=== PATIENT | male | born 1960 | race Caucasian/White ===

== ENCOUNTER 2021-06-06 18:26 | Inpatient (IN) | payer OTHER, SELFPAY ==
[2021-06-06] VITALS (12 sets, daily range): BP systolic 136–185; BP diastolic 63–99; PULSE 80–103; RESP 11–30; TEMP 37–37.8; O2SAT 92–96; BMI 37.3
--- NOTE | 2021-06-06 | PATH_ITS ---
[facility] Accession Number: [id number] . 01 Material submitted: . appendix - APPENDIX . 02 Diagnosis: Appendix, Appendectomy: Acute appendicitis and serositis. [facility] 06/09/2021 1021 Local . 02 Electronically signed: . Nayely Fernandez MD, Pathologist NPI- [id number] . 01 Gross description: . The specimen is received in formalin, labeled appendix and consists of a 7.8 cm in length by 1.0 cm in diameter vermiform appendix with attached veloz-yellow, focally hemorrhagic mesoappendix measuring 7.0 x 3.0 x 2.0 cm. The serosa is veloz-brown and ragged with focal areas of disruption and purulent exudate. Sectioning reveals a veloz-pink to veloz-brown hemorrhagic mucosa and a lumen measuring 0.6 cm in diameter. Laboratory Phlebotomist sections are submitted, to include the en face margin (blue), central cross sections and bisected tip, in cassette A1-A2. ([id number]) /[facility] 06/08/2021 1054 Local . 02 Pathologist provided ICD-10: K35.20 . 02 CPT . 389604 Performed at: 01 [facility] Cytology [address], [place], [place] [id number] MD Nicola Colunga MD Phone: [phone] Performed at: 02 [facility] [address] [place], [place] [id number] MD Joselyn Moreno MD Phone: [phone]
--- NOTE | 2021-06-06 19:06 | ED_ITS ---
HPI - Abdominal Pain General Chief Complaint: Abdominal Pain Stated Complaint: pain in low abd Time Seen by Provider: 06/06/21 18:59 Source: patient Mode of arrival: Ambulatory Limitations: no limitations History of Present Illness HPI narrative: This is a 60-year-old male comes in with some abdominal pain that started last night he describes it as lower but has no localized to the right lower quadrant. He states he began to feel fevers afternoon and has developed diaphoresis. He denies any lightheadedness. No chest pain or shortness of breath. No active nausea or vomiting. He has had bowel movement. He has had normal urination. He denies any back or flank pain. Denies any radiation of pain to his back. He is on 2 medications for blood pressure. He is allergic to aspirin and has anaphylactic symptoms., NSAIDs, clams and bee venom. Patient denies any major surgeries. He has never had any cardiac stents. Related Data Home Medications Medication Instructions Recorded Confirmed colchicine 0.6 mg tablet 0.6 mg PO PRN PRN 06/07/21 06/07/21 quinapril 20 mg tablet 20 mg PO DAILY 06/07/21 06/07/21 verapamil 240 mg tablet,extended 240 mg PO DAILY 06/07/21 06/07/21 release Allergies Allergy/AdvReac Type Severity Reaction Status Date / Time bee venom protein (honey bee) Allergy Verified 06/06/21 18:45 clams Allergy Verified 06/06/21 18:45 NSAIDS (Non-Steroidal Allergy Verified 06/06/21 18:44 Anti-Inflamma Review of Systems Review of Systems ROS Unobtainable: All systems reviewed & are unremarkable except as noted in HPI and below Patient History Medical History (Updated 06/06/21 @ 22:16 by Asia Perdomo DO) Hypertension Surgical History (Updated 06/06/21 @ 21:54 by Leonidas Suarez MD) History of lumbar fusion S/P hip replacement Social History household members: spouse Smoking Status: Never smoker alcohol intake: current Smoking Status: Never smoker alcohol intake frequency: 0-2 drinks per day Substance Use Type: marijuana Exam Narrative Exam Narrative: GENERAL: Alert and oriented x three, obese male in moderate distress. Patient is diaphoretic to touch. HEENT: Head normocephalic, atraumatic, EOMI, pupils reactive, face symmetric, moist mucous membranes NECK: Supple, full range of motion CARDIOVASCULAR: Regular rate and rhythm without murmurs, rubs or gallops. RESPIRATORY: Breath sounds equal bilaterally, no wheezes rales or rhonchi. ABDOMEN: Soft, positive for right lower quadrant tenderness. Bowel sounds all 4 quadrants. No guarding or rebound, rigidity, no mass, no pulsatile mass, bruit. : No CVA tenderness EXTREMITIES: Normal range of motion, no clubbing or edema. Neurovascularly intact NEUROLOGICAL: Cranial nerves II through XII grossly intact. Moving all extremities SKIN: Warm, dry, no petechiae, no rashes or lesions. Initial Vital Signs Initial Vital Signs: Vital Signs Temperature 100.1 F H 06/06/21 18:45 Pulse Rate 103 H 06/06/21 18:45 Respiratory Rate 20 06/06/21 18:45 Blood Pressure 183/98 H 06/06/21 18:45 Pulse Oximetry 94 06/06/21 18:45 Course Orders Ordered: ED Orders 06/06/21 19:08 EKG-12 Lead Stat 06/06/21 19:25 Type and Screen Stat 06/06/21 19:52 CT abdomen pelvis w con Stat 06/06/21 20:38 COVID19 -Nasal swab/Pre-Proc Stat 06/06/21 20:45 COVID19 - ADMIT (ELECTRICAL TROUBLESHOOTER swab/PCR) Stat 06/06/21 21:30 Urinalysis and Microscopic Stat Acetaminophen (Acetaminophen 325 Mg Tablet) 650 mg PO Q6HR MARGARET Last Admin: 06/07/21 00:43 Dose: 650 mg Documented by: LEONORA Al Hydrox/Mg Hydrox/Simethicone (Mag Hydrox/Alum/Simeth 30 Ml Udc) 30 ml PO Q6HR PRN PRN Reason: Dyspepsia Calcium Carbonate (Calcium Carbonate 500 Mg Tab) 1,000 mg PO Q4HR PRN PRN Reason: Dyspepsia Enoxaparin Sodium (Enoxaparin 40 Mg/0.4 Ml Syringe) 40 mg SUBCUT DAILY [facility] Fentanyl (Fentanyl 100 Mcg/2 Ml Inj) 0 mcg IV Q5MIN PRN PRN Reason: Pain, Severe (7-10) Hydromorphone HCl (Hydromorphone 1 Mg Inj) 1 mg IV Q3H PRN PRN Reason: Pain, Severe (7-10) Piperacillin Sod/Tazobactam (Sod 3.375 gm/ Sodium Chloride) 100 mls @ 25 mls/hr IV Q8H [facility] Last Admin: 06/07/21 00:45 Dose: 25 mls/hr Documented by: LEONORA Lactated Ringer's (Lactated Ringers) 1,000 mls @ 120 mls/hr IV CONT [facility] Last Admin: 06/07/21 00:35 Dose: 120 mls/hr Documented by: LEONORA Naloxone HCl (Naloxone 0.4 Mg/Ml Vial) 0.2 mg IV Q2MIN PRN PRN Reason: Opiate Reversal Ondansetron HCl (Ondansetron 4 Mg/2 Ml Inj) 4 mg IV Q8HR PRN PRN Reason: Nausea And Vomiting Oxycodone HCl (Oxycodone Ir 5 Mg Tablet) 5 mg PO Q3HR PRN PRN Reason: Pain, Moderate (4-6) Discontinued Medications Acetaminophen (Acetaminophen 325 Mg Tablet) 975 mg PO NOW ONE Stop: 06/06/21 19:07 Last Admin: 06/06/21 21:33 Dose: Not Given Documented by: SEBASTIAN Bupivacaine HCl (Bupivacaine 0.25% (Pf) Vial) 30 ml INJ NOW ONE Stop: 06/06/21 22:46 Last Admin: 06/06/21 22:46 Dose: 30 ml Documented by: GRETA Hydromorphone HCl (Hydromorphone 1 Mg Inj) 1 mg IV NOW ONE Stop: 06/06/21 20:19 Last Admin: 06/06/21 20:22 Dose: 1 mg Documented by: SEBASTIAN Hydromorphone HCl (Hydromorphone 1 Mg Inj) 1 mg IV NOW ONE Stop: 06/06/21 21:11 Last Admin: 06/06/21 21:12 Dose: 1 mg Documented by: SEBASTIAN Hydromorphone HCl (Hydromorphone 2 Mg Inj) 0 mg IV Q5MIN PRN PRN Reason: Pain, Mild (1-3) Sodium Chloride (Normal Saline 0.9%) 1,000 mls @ 150 mls/hr IV CONT [facility] Last Admin: 06/06/21 21:34 Dose: Not Given Documented by: SEBASTIAN Sodium Chloride (Normal Saline 0.9%) 2,328 mls @ 776 mls/hr 30 ml/kg infuse over 3 hr (2328 ml) IV NOW ONE Stop: 06/06/21 22:05 Last Infusion: 06/06/21 21:48 Dose: 776 mls/hr Documented by: Admin: 06/06/21 19:44 Dose: 776 mls/hr Documented by: CONCETTA Piperacillin Sod/Tazobactam (Sod 4.5 gm/ Sodium Chloride) 100 mls @ 200 mls/hr IV NOW ONE Stop: 06/06/21 19:07 Last Infusion: 06/06/21 21:09 Dose: 0 mls/hr Documented by: Admin: 06/06/21 19:45 Dose: 200 mls/hr Documented by: CONCETTA Lactated Ringer's (Lactated Ringers) 1,000 mls @ 42 mls/hr IV CONT MARGARET Last Admin: 06/06/21 22:14 Dose: 42 mls/hr Documented by: LENIN Morphine Sulfate (Morphine 4 Mg/Ml Inj) 4 mg IV NOW ONE Stop: 06/06/21 19:07 Last Admin: 06/06/21 19:43 Dose: 4 mg Documented by: CONCETTA Ondansetron HCl (Ondansetron 4 Mg/2 Ml Inj) 4 mg IV NOW ONE Stop: 06/06/21 19:07 Last Admin: 06/06/21 19:43 Dose: 4 mg Documented by: CONCETTA Ondansetron HCl (Ondansetron 4 Mg/2 Ml Inj) 4 mg IV NOW PRN PRN Reason: Nausea And Vomiting Oxycodone HCl (Oxycodone Ir 5 Mg Tablet) 5 mg PO PACUNOW PRN PRN Reason: Mild or moderate pain Consultations Consultation #1: Dr. Suarez, general surgery except for appendicitis. Vital Signs Vital signs: Vital Signs - 8 hr 06/06/21 20:22 06/06/21 20:30 06/06/21 20:59 Temperature Pulse Rate 90 89 88 Respiratory Rate 25 H 24 24 Blood Pressure 175/99 H Pulse Oximetry 95 93 93 06/06/21 21:00 Temperature 99.5 F Pulse Rate 90 Respiratory Rate 25 H Blood Pressure 185/90 H Pulse Oximetry 92 MDM - Abdominal Pain Lab Data Result diagrams: 06/06/21 19:00 06/06/21 19:00 Labs: Lab Results 06/06/21 06/06/21 06/06/21 Range/Units 19:00 19:00 19:00 WBC 18.2 H (4.5-11.0) X10^3/uL RBC 4.91 (4.5-5.9) X10^6/uL Hgb 15.6 (13.5-17.5) g/dL Hct 45.9 (41-53) % MCV 93.6 (80-100) fL MCH 31.8 (26-34) PG MCHC 34.0 (30-36) % RDW 12.4 (11.6-14.8) % Plt Count 249 (150-400) X10^3/uL Neut % (Auto) 80.9 H (50-75) % Lymph % (Auto) 9.1 L (25-40) % [place] % (Auto) 9.8 (3-14) % Eos % (Auto) 0.0 L (2-4) % Baso % (Auto) 0.2 (0-2) % Neut # (Auto) 19126 H (8162-4070) /uL Lymph # (Auto) 1700 (1630-1453) /uL [place] # (Auto) 1800 H (0-900) /uL Eos # (Auto) 0 (0-450) /uL Baso # (Auto) 0 (0-100) /uL Sodium 133 L (137-145) mmol/L Potassium 3.9 (3.4-5.1) mmol/L Chloride 102 (98-107) mmol/L Carbon Dioxide 21 L (22-32) mmol/L BUN 12 (9-20) mg/dL Creatinine 1.04 (0.66-1.25) mg/dL Estimated GFR > 60.0 (>60) mL/min BUN/Creatinine Ratio 11.5 (6-22) Glucose 172 H (80-110) mg/dL Lactate (0.7-2.1) mmol/L Calcium 9.5 (8.4-10.2) mg/dL Total Bilirubin 1.3 (0.2-1.3) mg/dL AST 23 (17-59) IU/L ALT 40 (<50) IU/L Alkaline Phosphatase 77 (38-126) U/L Total Creatine Kinase 105 (55-170) U/L CK-MB (CK-2) 1.64 (<2.37) ng/mL CK-MB (CK-2) Rel Index 1.6 (1.5-5.0) % Troponin I < 0.012 (0.01-0.034) ng/mL Total Protein 7.9 (6.3-8.2) g/dL Albumin 4.7 (3.5-5.0) g/dL Globulin 3.2 (1.7-4.1) g/dL Albumin/Globulin Ratio 1.5 (1.0-2.8) Lipase 39 (23-300) U/L Procalcitonin 0.24 (<0.5) ng/mL Urine Color Urine Appearance Urine pH (4.5-8.0) Ur Specific [place] (1.000-1.035) Urine Protein (Negative) Urine Glucose (UA) (Negative) g/dL Urine Ketones (NEGATIVE) Urine Occult Blood (Negative) Urine Nitrate (Negative) Urine Bilirubin (NEGATIVE) Urine Urobilinogen (0.2) E.U./dL Ur Leukocyte Esterase (NEGATIVE) Urine RBC (0-5/HPF) Urine WBC (0-5/HPF) Urine Bacteria (None) Ur Culture Indicated? SARS-CoV-2 (PCR) (Negative) Blood Type Antibody Screen 06/06/21 06/06/21 06/06/21 Range/Units 19:00 19:25 20:45 WBC (4.5-11.0) X10^3/uL RBC (4.5-5.9) X10^6/uL Hgb (13.5-17.5) g/dL Hct (41-53) % MCV (80-100) fL MCH (26-34) PG MCHC (30-36) % RDW (11.6-14.8) % Plt Count (150-400) X10^3/uL Neut % (Auto) (50-75) % Lymph % (Auto) (25-40) % [place] % (Auto) (3-14) % Eos % (Auto) (2-4) % Baso % (Auto) (0-2) % Neut # (Auto) (8878-1618) /uL Lymph # (Auto) (5104-7572) /uL [place] # (Auto) (0-900) /uL Eos # (Auto) (0-450) /uL Baso # (Auto) (0-100) /uL Sodium (137-145) mmol/L Potassium (3.4-5.1) mmol/L Chloride (98-107) mmol/L Carbon Dioxide (22-32) mmol/L BUN (9-20) mg/dL Creatinine (0.66-1.25) mg/dL Estimated GFR (>60) mL/min BUN/Creatinine Ratio (6-22) Glucose (80-110) mg/dL Lactate 1.9 (0.7-2.1) mmol/L Calcium (8.4-10.2) mg/dL Total Bilirubin (0.2-1.3) mg/dL AST (17-59) IU/L ALT (<50) IU/L Alkaline Phosphatase (38-126) U/L Total Creatine Kinase (55-170) U/L CK-MB (CK-2) (<2.37) ng/mL CK-MB (CK-2) Rel Index (1.5-5.0) % Troponin I (0.01-0.034) ng/mL Total Protein (6.3-8.2) g/dL Albumin (3.5-5.0) g/dL Globulin (1.7-4.1) g/dL Albumin/Globulin Ratio (1.0-2.8) Lipase (23-300) U/L Procalcitonin (<0.5) ng/mL Urine Color Urine Appearance Urine pH (4.5-8.0) Ur Specific [place] (1.000-1.035) Urine Protein (Negative) Urine Glucose (UA) (Negative) g/dL Urine Ketones (NEGATIVE) Urine Occult Blood (Negative) Urine Nitrate (Negative) Urine Bilirubin (NEGATIVE) Urine Urobilinogen (0.2) E.U./dL Ur Leukocyte Esterase (NEGATIVE) Urine RBC (0-5/HPF) Urine WBC (0-5/HPF) Urine Bacteria (None) Ur Culture Indicated? SARS-CoV-2 (PCR) Negative (Negative) Blood Type B Positive Antibody Screen Negative 06/06/21 Range/Units 21:30 WBC (4.5-11.0) X10^3/uL RBC (4.5-5.9) X10^6/uL Hgb (13.5-17.5) g/dL Hct (41-53) % MCV (80-100) fL MCH (26-34) PG MCHC (30-36) % RDW (11.6-14.8) % Plt Count (150-400) X10^3/uL Neut % (Auto) (50-75) % Lymph % (Auto) (25-40) % [place] % (Auto) (3-14) % Eos % (Auto) (2-4) % Baso % (Auto) (0-2) % Neut # (Auto) (6419-6904) /uL Lymph # (Auto) (0220-0079) /uL [place] # (Auto) (0-900) /uL Eos # (Auto) (0-450) /uL Baso # (Auto) (0-100) /uL Sodium (137-145) mmol/L Potassium (3.4-5.1) mmol/L Chloride (98-107) mmol/L Carbon Dioxide (22-32) mmol/L BUN (9-20) mg/dL Creatinine (0.66-1.25) mg/dL Estimated GFR (>60) mL/min BUN/Creatinine Ratio (6-22) Glucose (80-110) mg/dL Lactate (0.7-2.1) mmol/L Calcium (8.4-10.2) mg/dL Total Bilirubin (0.2-1.3) mg/dL AST (17-59) IU/L ALT (<50) IU/L Alkaline Phosphatase (38-126) U/L Total Creatine Kinase (55-170) U/L CK-MB (CK-2) (<2.37) ng/mL CK-MB (CK-2) Rel Index (1.5-5.0) % Troponin I (0.01-0.034) ng/mL Total Protein (6.3-8.2) g/dL Albumin (3.5-5.0) g/dL Globulin (1.7-4.1) g/dL Albumin/Globulin Ratio (1.0-2.8) Lipase (23-300) U/L Procalcitonin (<0.5) ng/mL Urine Color Yellow Urine Appearance Clear Urine pH 6.5 (4.5-8.0) Ur Specific [place] <=1.005 (1.000-1.035) Urine Protein Negative (Negative) Urine Glucose (UA) Negative (Negative) g/dL Urine Ketones Negative (NEGATIVE) Urine Occult Blood 1+ H (Negative) Urine Nitrate Negative (Negative) Urine Bilirubin Negative (NEGATIVE) Urine Urobilinogen 0.2 (0.2) E.U./dL Ur Leukocyte Esterase Negative (NEGATIVE) Urine RBC 1-5/hpf (0-5/HPF) Urine WBC None seen (0-5/HPF) Urine Bacteria None seen (None) Ur Culture Indicated? Cult not indicated SARS-CoV-2 (PCR) (Negative) Blood Type Antibody Screen Imaging Data CT scan - abdomen/pelvis: Radiologist's Impression: [address] [address] [address] Scan Report Signed Patient: Ponce Clinton MR#: [id number] : 1960 Acct:[id number] Age/Sex: 60 / M Date of Service: 06/06/21 Loc: ED Accession Number: [id number] ?? Procedure: CT abdomen pelvis w con Ordering Provider: Asia Perdomo D.O. PROCEDURE:? CT ABDOMEN PELVIS W CON ? INDICATIONS:? abdominal pain, RLQ, fever. ? TECHNIQUE:? After the administration of IV contrast, axial sections were acquired from the lung bases to the pubic symphysis.? Coronal and sagittal reformats were performed.? For radiation dose reduction, the following was used:? automated exposure control, adjustment of mA and/or kV according to patient size. ? COMPARISON:? None. ? FINDINGS:? Image quality:? Excellent.? ? Lung bases:? Mild basilar atelectasis.? ? Heart:? No significant findings. ? ? ABDOMEN: Liver:? Hepatic steatosis. Gallbladder:? Not distended.? No calcified gallstones. Biliary ducts:? Unremarkable.? ? Pancreas:? Enhances uniformly.? Unremarkable contours. ? Spleen:? No splenomegaly. Adrenal Glands:? No nodule. Kidneys and Ureters:? No hydronephrosis.? Small simple appearing renal cysts bilaterally. ? Stomach and Bowel:? Prominent loops of small bowel in the left abdomen.? No transition point to suggest small bowel obstruction is demonstrated.? Suspect small duodenal diverticulum.? The appendix is dilated measuring up to 1 cm in diameter, (12/26).? There is inflammatory change surrounding the appendix.? There is a appendiculolith at the base of the appendix measuring 1 cm. There are a few small foci of extraluminal gas.? No loculated fluid collection at this time.? No significant diverticulosis. Peritoneum:? No abnormal intraperitoneal fluid.? No free air.? ? Ventral Wall: ? No hernia.? Abdominal Nodes:? No retroperitoneal or mesenteric adenopathy by size criteria.? Vessels:? Aorta and inferior vena cava are normal in size.? ? PELVIS: Pelvic Organs:? Prostatomegaly.? Small volume of free fluid tracking into the pelvis.? ? Bladder:? Mostly decompressed.? ? Pelvic Nodes: No enlarged lymph nodes.? Miscellaneous:? Suspect fat containing right inguinal hernia. ? Bones:? Left hip total arthroplasty.? L4-L5 pedicle screw fixation with intervertebral body spacer. ? ? IMPRESSION:? 1. Acute appendicitis.? Appendiculolith.? Foci of extraluminal gas suggesting appendiceal rupture.? No loculated fluid collection to suggest abscess. ? 2. Prominent loops of small bowel the left abdomen.? No transition point.? Suspect ileus. ? 3. Hepatic steatosis. ? Comment: Findings were discussed with Asia Perdomo at the time of dictation. ? ? ? Dictated by: Melvin Brown M.D. on 06/06/2021 at 20:42 ? ? Approved by: Melvin Brown M.D. on 06/06/2021 at 20:52? ECG Data Attestation: I personally reviewed and interpreted this ECG as follows: Interpretation: NRS, rate 90 8p are 154 QRS of 112 and QTC 477.? Nonspecific change.? MDM Narrative Medical decision making narrative: 61-year-old male with complaint of right lower quadrant pain. Patient is diaphoretic he has temperature of a 100.1? F and tachycardic. Patient was started on sepsis protocol. Started Zosyn for suspected appendectomy. CT abdomen and pelvis was obtained to rule out other potential causes. Patient CT does show appendicitis with possible perforation of small foci of air discussed with General surgery. Accepted with plan for OR tonight. Discharge Plan Departure Patient Disposition: Admitted as Observation Clinical Impression: Acute appendicitis Admit Date/Time: 06/06/21 21:35 Admit Provider: Leonidas Suarez
[2021-06-06 19:17] LABS: Add Manual Diff / Slide Review NO; Basophils Absolute Auto 0 /uL (0-100); Basophils Percent Auto 0.2 % (0-2); Eosinophils Absolute Auto 0 /uL (0-450); Hematocrit 45.9 % (41-53); Hemoglobin 15.6 g/dL (13.5-17.5); Lymphocytes Absolute Auto 1700 /uL (1100-4500); Lymphocytes Percent Auto 9.1 % (25-40); Mean Corpuscular Hemoglobin 31.8 PG (26-34); Mean Corpuscular Volume 93.6 fL (80-100); Monocytes Absolute Auto 1800 /uL (0-900); Monocytes Percent Auto 9.8 % (3-14); Neutrophils Absolute Auto 14700 /uL (1500-7000); Neutrophils Percent Auto 80.9 % (50-75); Platelet Count 249 X10^3/uL (150-400); Red Blood Cell Count 4.91 X10^6/uL (4.5-5.9); Red Cell Distribution Width 12.4 % (11.6-14.8); White Blood Cell Count 18.2 X10^3/uL (4.5-11.0)
[2021-06-06 19:21] LABS: Alanine Aminotransferase 40 IU/L (<50); Albumin 4.7 g/dL (3.5-5.0); Albumin Globulin Ratio 1.5 (1.0-2.8); Alkaline Phosphatase 77 U/L (38-126); Aspartate Aminotransferase 23 IU/L (17-59); BUN Creatinine Ratio 11.5 (6-22); Bilirubin Total 1.3 mg/dL (0.2-1.3); Blood Urea Nitrogen 12 mg/dL (9-20); Calcium 9.5 mg/dL (8.4-10.2); Carbon Dioxide 21 mmol/L (22-32); Chloride 102 mmol/L (98-107); Estimated Glomerular Filt Rate > 60.0 mL/min (>60); Globulin 3.2 g/dL (1.7-4.1); Glucose 172 mg/dL (80-110); HEMOLYSIS < 15 (0-50); Lipase 39 U/L (23-300); Potassium 3.9 mmol/L (3.4-5.1); Sodium 133 mmol/L (137-145); Total Protein 7.9 g/dL (6.3-8.2)
[2021-06-06] MEDS: MORPHINE 4 MG/ML INJ IV (19:43)
[2021-06-06] MEDS: ONDANSETRON 4 MG/2 ML INJ IV (19:43)
[2021-06-06] MEDS: SODIUM CHLORIDE 0.9% 2,328 ML 776 ML IV (19:44)
[2021-06-06] MEDS: PIPERACILLIN/TAZO 4.5 GM in SODIUM CHLORIDE 0.9% 100 ML 200 ML IV (19:45)
[2021-06-06 19:49] LABS: Lactate (Lactic Acid) 1.9 mmol/L (0.7-2.1)
--- NOTE | 2021-06-06 19:51 | PC.NURSE ---
Took 1000mg tylenol at 1800
--- NOTE | 2021-06-06 19:52 | DI.CT.S_ITS ---
PROCEDURE: CT ABDOMEN PELVIS W CON INDICATIONS: abdominal pain, RLQ, fever. TECHNIQUE: After the administration of IV contrast, axial sections were acquired from the lung bases to the pubic symphysis. Coronal and sagittal reformats were performed. For radiation dose reduction, the following was used: automated exposure control, adjustment of mA and/or kV according to patient size. COMPARISON: None. FINDINGS: Image quality: Excellent. Lung bases: Mild basilar atelectasis. Heart: No significant findings. ABDOMEN: Liver: Hepatic steatosis. Gallbladder: Not distended. No calcified gallstones. Biliary ducts: Unremarkable. Pancreas: Enhances uniformly. Unremarkable contours. Spleen: No splenomegaly. Adrenal Glands: No nodule. Kidneys and Ureters: No hydronephrosis. Small simple appearing renal cysts bilaterally. Stomach and Bowel: Prominent loops of small bowel in the left abdomen. No transition point to suggest small bowel obstruction is demonstrated. Suspect small duodenal diverticulum. The appendix is dilated measuring up to 1 cm in diameter, (3/). There is inflammatory change surrounding the appendix. There is a appendiculolith at the base of the appendix measuring 1 cm. There are a few small foci of extraluminal gas. No loculated fluid collection at this time. No significant diverticulosis. Peritoneum: No abnormal intraperitoneal fluid. No free air. Ventral Wall: No hernia. Abdominal Nodes: No retroperitoneal or mesenteric adenopathy by size criteria. Vessels: Aorta and inferior vena cava are normal in size. PELVIS: Pelvic Organs: Prostatomegaly. Small volume of free fluid tracking into the pelvis. Bladder: Mostly decompressed. Pelvic Nodes: No enlarged lymph nodes. Miscellaneous: Suspect fat containing right inguinal hernia. Bones: Left hip total arthroplasty. L4-L5 pedicle screw fixation with intervertebral body spacer. IMPRESSION: 1. Acute appendicitis. Appendiculolith. Foci of extraluminal gas suggesting appendiceal rupture. No loculated fluid collection to suggest abscess. 2. Prominent loops of small bowel the left abdomen. No transition point. Suspect ileus. 3. Hepatic steatosis. Comment: Findings were discussed with Asia Perdomo at the time of dictation. Dictated by: Melvin Brown M.D. on 06/06/2021 at 20:42 Approved by: Melvin Brown M.D. on 06/06/2021 at 20:52
[2021-06-06 20:06] LABS: Creatine Kinase 105 U/L (55-170)
[2021-06-06 20:19] LABS: Troponin I < 0.012 ng/mL (0.01-0.034)
[2021-06-06 20:21] LABS: CKMB % Relative Index 1.6 % (1.5-5.0); Creatine Kinase MB 1.64 ng/mL (<2.37)
[2021-06-06] MEDS: HYDROMORPHONE 1 MG INJ IV ×2 (20:22→21:12)
[2021-06-06 20:23] LABS: Procalcitonin 0.24 ng/mL (<0.5)
[2021-06-06 21:41] LABS: Bacteria Urine None Seen; WBC Urine None Seen (0-5/HPF)
[2021-06-06 21:43] LABS: Appearance Urine UA CLEAR; Bilirubin Urine UA NEGATIVE (NEGATIVE); Color Urine UA YELLOW; Glucose Urine UA NEGATIVE (Negative); Ketones Urine UA NEGATIVE (NEGATIVE); Leukocyte Esterase Urine UA NEGATIVE (NEGATIVE); Nitrite Urine UA NEGATIVE (Negative); Occult Blood Urine UA 1+ (Negative); Protein Urine UA NEGATIVE (Negative); Specific Gravity Urine UA <=1.005 (1.000-1.035); Urobilinogen Urine UA 0.2 E.U./dL (0.2); pH Urine UA 6.5 (4.5-8.0)
[2021-06-06 21:44] LABS: COVID19 - ADMIT (NP swab/PCR) Negative (Negative)
--- NOTE | 2021-06-06 21:44 | PM.HP.1 ---
History of Present Illness History of Present Illness Date Patient Seen: 06/06/21 Time Patient Seen: 21:44 Chief complaint: pain in low abd Narrative: Ponce is a 60-year-old man seen in the emergency room in consultation for acute appendicitis. He developed acute abdominal pain yesterday which became steadily worse and primarily focused in the right lower quadrant. Associated anorexia and nausea no emesis. At admission temperature 99.5?, WBC 18 remainder of laboratory studies unremarkable. CT abdomen pelvis demonstrates a dilated appendix with free fluid in the pelvis and a foci of free air consistent with acute appendicitis unlikely rupture. Received IV pain medication and Zosyn in the emergency room. Patient History Medical History (Updated 06/06/21 @ 21:47 by Leonidas Suarez MD) Hypertension Surgical History (Updated 06/06/21 @ 21:54 by Leonidas Suarez MD) History of lumbar fusion S/P hip replacement Family & Social History Safety & Behavioral: Feels Safe in Current Yes Environment Been Physically Hurt or No Threatened By a Person Tobacco & Substance use: Smoking Status Never smoker alcohol intake frequency 0-2 drinks per day Substance Use Type marijuana Meds Home Medications and Allergies Allergies Allergy/AdvReac Type Severity Reaction Status Date / Time bee venom protein (honey bee) Allergy Verified 06/06/21 18:45 clams Allergy Verified 06/06/21 18:45 NSAIDS (Non-Steroidal Allergy Verified 06/06/21 18:44 Anti-Inflamma Review of Systems Review of Systems ROS: Yes All systems reviewed with the patient and are negative except as otherwise documented Exam Vital Signs (past 8 hours): - 06/06/21 18:45 06/06/21 19:33 06/06/21 19:34 Temperature 100.1 F H Pulse Rate 103 H 100 H 100 H Respiratory Rate 20 30 H 28 H Blood Pressure 183/98 H 136/63 Pulse Oximetry 94 93 06/06/21 20:22 06/06/21 20:30 06/06/21 20:59 Temperature Pulse Rate 90 89 88 Respiratory Rate 25 H 24 24 Blood Pressure 175/99 H Pulse Oximetry 95 93 93 06/06/21 21:00 Temperature 99.5 F Pulse Rate 90 Respiratory Rate 25 H Blood Pressure 185/90 H Pulse Oximetry 92 Oxygen Delivery Method Room Air Narrative Exam Narrative: Constitutional-he is oriented to person, place and time. No apparent distress Cardiovascular- regular rate, no peripheral edema Pulmonary-unlabored respiratory effort, no audible wheezing Abdominal-focal peritonitis right lower quadrant Musculoskeletal-no cyanosis or clubbing Neurological-nonfocal, normal strength throughout, normal gait. Skin-warm and dry Objective Labs Result Diagrams: 06/06/21 19:00 06/06/21 19:00 Labs: Laboratory Results - last 24 hr 06/06/21 06/06/21 06/06/21 19:00 19:00 19:00 WBC 18.2 H RBC 4.91 Hgb 15.6 Hct 45.9 MCV 93.6 MCH 31.8 MCHC 34.0 RDW 12.4 Plt Count 249 Neut % (Auto) 80.9 H Lymph % (Auto) 9.1 L [place] % (Auto) 9.8 Eos % (Auto) 0.0 L Baso % (Auto) 0.2 Neut # (Auto) 73653 H Lymph # (Auto) 1700 [place] # (Auto) 1800 H Eos # (Auto) 0 Baso # (Auto) 0 Sodium 133 L Potassium 3.9 Chloride 102 Carbon Dioxide 21 L BUN 12 Creatinine 1.04 Estimated GFR > 60.0 BUN/Creatinine Ratio 11.5 Glucose 172 H Lactate Calcium 9.5 Total Bilirubin 1.3 AST 23 ALT 40 Alkaline Phosphatase 77 Total Creatine Kinase 105 CK-MB (CK-2) 1.64 CK-MB (CK-2) Rel Index 1.6 Troponin I < 0.012 Total Protein 7.9 Albumin 4.7 Globulin 3.2 Albumin/Globulin Ratio 1.5 Lipase 39 Procalcitonin 0.24 Blood Type Antibody Screen 06/06/21 06/06/21 19:00 19:25 WBC RBC Hgb Hct MCV MCH MCHC RDW Plt Count Neut % (Auto) Lymph % (Auto) [place] % (Auto) Eos % (Auto) Baso % (Auto) Neut # (Auto) Lymph # (Auto) [place] # (Auto) Eos # (Auto) Baso # (Auto) Sodium Potassium Chloride Carbon Dioxide BUN Creatinine Estimated GFR BUN/Creatinine Ratio Glucose Lactate 1.9 Calcium Total Bilirubin AST ALT Alkaline Phosphatase Total Creatine Kinase CK-MB (CK-2) CK-MB (CK-2) Rel Index Troponin I Total Protein Albumin Globulin Albumin/Globulin Ratio Lipase Procalcitonin Blood Type B Positive Antibody Screen Negative Assessment & Plan Assessment and plan (1) Acute appendicitis: Status: Acute Assessment & Plan narrative: Ponce is a 60-year-old man with acute appendicitis likely rupture. Workup was significant for WBC 18, CT abdomen demonstrates dilated appendix with fecalith free fluid in the abdomen and foci of free air consistent with ruptured appendicitis, no abscess. We discussed management options including medical and surgical therapy. Recommended that we proceed with laparoscopic appendectomy because of the presence of fecalith and likely rupture.. We discussed operative risks including bleeding infection, conversion to open, damage to surrounding structures, staple line leak. Questions answered he is in agreement with this plan. Time Spent With Patient Critical Care time: I spent a total of [] minutes of critical care time on this patient's care today; this time is exclusive of procedural time.
[2021-06-06 21:52] LABS: Culture Indicated Urine Cult Not Indicated; RBC Urine 1-5/HPF (0-5/HPF)
[2021-06-06] MEDS: LACTATED RINGERS 1,000 ML 42 ML IV (22:14)
--- NOTE | 2021-06-06 22:32 | SUR.OPER ---
Supine on padded OR bed, head on pillow, safety belt at thigh, left arm padded and tucked at side. Right arm secured on padded arm board <90 degrees abduction. Legs uncrossed. Padded footboard in place. Tape over blanket to secure lower legs.
[2021-06-06] MEDS: BUPIVACAINE 0.25% (PF) VIAL 30 ML INJ (22:46)
--- NOTE | 2021-06-06 23:38 | PM.OP.1 ---
Operative Date/Time/Diagnoses Date of procedure: 06/06/21 Time of procedure: 23:38 Pre-op diagnosis: acute appendicitis Post-op diagnosis: other (perforated appendicitis with diffuse peritonitis) Procedure & Clinicians Procedure: Laparoscopic appendectomy Same procedure as scheduled: Yes Indications: Acute appendicitis. White blood cell count 18, CT acute appendicitis free fluid foci of free air Surgeon: Leonidas Suarez Operative Notes Findings: Diffuse peritonitis. Perforated gangrenous appendix Specimen(s): other (Appendix) Estimated Blood Loss (mL): 50 Procedure in detail: Patient was brought to the operating room placed supine on the table. Bilateral lower extremity compression devices were applied. Anesthesia was induced and they intubated with an endotracheal tube. They received 3.375 g of Zosyn prior to skin incision. The left arm was tucked and appropriately padded. They were prepped and draped in sterile fashion. Time-out was performed. An infraumbilical incision was made the umbilical stalk was grasped and elevated and incision was made and the abdomen was entered atraumatically. A 12 mm balloon trocar was then placed through the incision and pneumoperitoneum of 14 mm Hg was established. The scope was then inserted and the abdomen inspected, there was no evidence of injury upon entry. Two 5 mm ports were placed under direct visualization, one in the left lower quadrant and second in the lower midline. A thorough laparoscopic evaluation was performed inspecting all four quadrants. There was diffuse peritonitis. There was a moderate amount free fluid within the abdomen as well as fibrinous material and and purulence, no discrete abscess. Patient was then tilted right side up. The small bowel was then swept to the upper aspect of the abdomen. The tenie were followed to the base of the cecum where the appendix was identified. The appendix was gangrenous and perforated near the base. In order to adequately expose the appendix the cecum was carefully mobilized to the midline by incising the white line of T[place]t. The appendix was necrotic but this was at least a cm or so above the true base. The appendix was then amputated flush at the cecum using the endo-stapler blue load. Next the mesoappendix was skeletonized and then divided using the REKHA stapler white load. Specimen was retrieved using a endoscopic retrieval bad through the 10 mm infra-umbilical port. The right paracolic gutter and the pouch of Christiano were irrigated copiously. A 19 [place] Denys drain was placed through the left side of the abdomen to lay in the right pericolic gutter and pelvis. The 5 mm ports were then removed under direct visualization. The umbilical fascial incision was closed with 0 Vicryl in a figure-eight fashion. The skin wounds were irrigated and closed with 4-0 Monocryl followed by the application of Dermabond. Sponge instrument count at the end of the operation was correct. The patient tolerated procedure well was extubated and transferred to the postoperative care unit in stable condition. Complications: none Post-operative Condition: stable Disposition: Acute Care
[2021-06-07] VITALS (20 sets, daily range): BP systolic 129–177; BP diastolic 77–99; PULSE 69–98; RESP 16–20; TEMP 35.9–38.2; O2SAT 90–97; BMI 39.4
[2021-06-07] MEDS: LACTATED RINGERS 1,000 ML 120 ML IV ×2 (00:35→17:35)
[2021-06-07] MEDS: ACETAMINOPHEN 325 MG TABLET 650 MG PO ×4 (00:43→17:35)
[2021-06-07] MEDS: PIPERACILLIN/TAZO 3.375 GM in SODIUM CHLORIDE 0.9% 100 ML 25 ML IV ×3 (00:45→17:32)
[2021-06-07 05:57] LABS: Add Manual Diff / Slide Review NO; Basophils Absolute Auto 0 /uL (0-100); Eosinophils Absolute Auto 0 /uL (0-450); Hemoglobin 14.8 g/dL (13.5-17.5); Lymphocytes Absolute Auto 600 /uL (1100-4500); Lymphocytes Percent Auto 3.8 % (25-40); Mean Corpuscular HGB Conc 33.7 % (30-36); Mean Corpuscular Volume 94.8 fL (80-100); Monocytes Absolute Auto 700 /uL (0-900); Monocytes Percent Auto 4.3 % (3-14); Neutrophils Absolute Auto 14800 /uL (1500-7000); Neutrophils Percent Auto 91.9 % (50-75); Platelet Count 195 X10^3/uL (150-400); Red Blood Cell Count 4.64 X10^6/uL (4.5-5.9); Red Cell Distribution Width 12.7 % (11.6-14.8); White Blood Cell Count 16.1 X10^3/uL (4.5-11.0)
--- NOTE | 2021-06-07 08:51 | P.PN_ITS ---
Subjective Subjective Date Patient Seen: 06/07/21 Time Patient Seen: 08:51 Interval history: no acute events. Appetite returned. Pain is improved from preop. Exam Vital Signs (past 8 hours): - 06/07/21 01:20 06/07/21 01:29 06/07/21 02:20 Temperature 98.2 F 98.0 F Pulse Rate 89 90 Respiratory Rate 18 18 Blood Pressure 150/94 H 144/94 H Pulse Oximetry 93 93 94 06/07/21 02:30 06/07/21 03:20 06/07/21 05:57 Temperature 99.1 F Pulse Rate 84 Respiratory Rate 18 Blood Pressure 129/88 Pulse Oximetry 94 93 94 Oxygen Delivery Method Room Air Oxygen Flow Rate 0 Narrative Exam Narrative: Gen-Adult man alert and oriented Abdomen-Tender RLQ less then yesterday. Drain SS Objective Labs Result Diagrams: 06/07/21 05:15 06/06/21 19:00 Labs: Laboratory Results - last 24 hr 06/06/21 06/06/21 06/06/21 19:00 19:00 19:00 WBC 18.2 H RBC 4.91 Hgb 15.6 Hct 45.9 MCV 93.6 MCH 31.8 MCHC 34.0 RDW 12.4 Plt Count 249 Neut % (Auto) 80.9 H Lymph % (Auto) 9.1 L [place] % (Auto) 9.8 Eos % (Auto) 0.0 L Baso % (Auto) 0.2 Neut # (Auto) 65505 H Lymph # (Auto) 1700 [place] # (Auto) 1800 H Eos # (Auto) 0 Baso # (Auto) 0 Sodium 133 L Potassium 3.9 Chloride 102 Carbon Dioxide 21 L BUN 12 Creatinine 1.04 Estimated GFR > 60.0 BUN/Creatinine Ratio 11.5 Glucose 172 H Lactate Calcium 9.5 Total Bilirubin 1.3 AST 23 ALT 40 Alkaline Phosphatase 77 Total Creatine Kinase 105 CK-MB (CK-2) 1.64 CK-MB (CK-2) Rel Index 1.6 Troponin I < 0.012 Total Protein 7.9 Albumin 4.7 Globulin 3.2 Albumin/Globulin Ratio 1.5 Lipase 39 Procalcitonin 0.24 Urine Color Urine Appearance Urine pH Ur Specific [place] Urine Protein Urine Glucose (UA) Urine Ketones Urine Occult Blood Urine Nitrate Urine Bilirubin Urine Urobilinogen Ur Leukocyte Esterase Urine RBC Urine WBC Urine Bacteria Ur Culture Indicated? SARS-CoV-2 (PCR) Blood Type Antibody Screen 06/06/21 06/06/21 06/06/21 19:00 19:25 20:45 WBC RBC Hgb Hct MCV MCH MCHC RDW Plt Count Neut % (Auto) Lymph % (Auto) [place] % (Auto) Eos % (Auto) Baso % (Auto) Neut # (Auto) Lymph # (Auto) [place] # (Auto) Eos # (Auto) Baso # (Auto) Sodium Potassium Chloride Carbon Dioxide BUN Creatinine Estimated GFR BUN/Creatinine Ratio Glucose Lactate 1.9 Calcium Total Bilirubin AST ALT Alkaline Phosphatase Total Creatine Kinase CK-MB (CK-2) CK-MB (CK-2) Rel Index Troponin I Total Protein Albumin Globulin Albumin/Globulin Ratio Lipase Procalcitonin Urine Color Urine Appearance Urine pH Ur Specific [place] Urine Protein Urine Glucose (UA) Urine Ketones Urine Occult Blood Urine Nitrate Urine Bilirubin Urine Urobilinogen Ur Leukocyte Esterase Urine RBC Urine WBC Urine Bacteria Ur Culture Indicated? SARS-CoV-2 (PCR) Negative Blood Type B Positive Antibody Screen Negative 06/06/21 06/07/21 21:30 05:15 WBC 16.1 H RBC 4.64 Hgb 14.8 Hct 44.0 MCV 94.8 MCH 32.0 MCHC 33.7 RDW 12.7 Plt Count 195 Neut % (Auto) 91.9 H Lymph % (Auto) 3.8 L [place] % (Auto) 4.3 Eos % (Auto) 0.0 L Baso % (Auto) 0.0 Neut # (Auto) 38597 H Lymph # (Auto) 600 L [place] # (Auto) 700 Eos # (Auto) 0 Baso # (Auto) 0 Sodium Potassium Chloride Carbon Dioxide BUN Creatinine Estimated GFR BUN/Creatinine Ratio Glucose Lactate Calcium Total Bilirubin AST ALT Alkaline Phosphatase Total Creatine Kinase CK-MB (CK-2) CK-MB (CK-2) Rel Index Troponin I Total Protein Albumin Globulin Albumin/Globulin Ratio Lipase Procalcitonin Urine Color Yellow Urine Appearance Clear Urine pH 6.5 Ur Specific [place] <=1.005 Urine Protein Negative Urine Glucose (UA) Negative Urine Ketones Negative Urine Occult Blood 1+ H Urine Nitrate Negative Urine Bilirubin Negative Urine Urobilinogen 0.2 Ur Leukocyte Esterase Negative Urine RBC 1-5/hpf Urine WBC None seen Urine Bacteria None seen Ur Culture Indicated? Cult not indicated SARS-CoV-2 (PCR) Blood Type Antibody Screen PFSH Medical History (Updated 06/06/21 @ 22:16 by Asia Perdomo DO) Hypertension Surgical History (Updated 06/06/21 @ 21:54 by Leonidas Suarez MD) History of lumbar fusion S/P hip replacement Social History household members: spouse Smoking Status: Never smoker alcohol intake: current Assessment & Plan Post-op Postoperative Procedures: Procedures Operation Date: 06/06/21 22:00 Actual Procedure Side Surgeon p Laparoscopic Appendectomy Leonidas Suarez MD Postoperative status narrative: 60 man POD 1 sp laparoscopic appendectomy for acute perforated appendicitis with diffuse peritonitis. Recovering as expected. -Advance diet as tolerated -DC IVF -Continue Zosyn -Continue drain plan to remove prior to discharge -Trend leukocytosis -If continues to improve likely discharge home without needs tomorrow 06/08 -SCDs and Lovenox for VTE prophylaxis
[2021-06-07] MEDS: VERAPAMIL SR 120 MG TABLET 240 MG PO (09:28)
[2021-06-07] MEDS: ENOXAPARIN 40 MG/0.4 ML SYRINGE SUBCUT (09:28)
[2021-06-07] MEDS: lisinopriL 20 MG TABLET PO (09:28)
[2021-06-07] MEDS: ONDANSETRON 4 MG/2 ML INJ IV (10:14)
--- NOTE | 2021-06-07 15:32 | CM.DANOTE ---
Patient is a 60 yo male who was admitted on 06/06/21 for Pain. Pt has [place] for insurance and his PCP is out of town. EMR was reviewed. Per Surgeon, pt with acute appendicitis and admitted for surgery last night. 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 Pt is independent at baseline and spouse available to assist at d/c. Pt does not anticipate any SW needs at d/c and is hopeful for home tomorrow. Plan: SW to follow closely for likely d/c home with spouse assist and any further identified d/c needs. LESIA Schwartz Discharge Planning/Care Management CM Discharge Assessment Start: 06/07/21 15:31 Freq: Status: Active Protocol: Document 06/07/21 15:31 BF (Rec: 06/07/21 15:32 BF [id number]) Discharge Planning Assessment Assigned Returned Goods Receiving Clerk LESIA Tomas DPOA/Assigned Designee Name informally spouse Advance Directives? No History Provided By Patient,Medical Record Has Patient been admitted in last 30 No days? Prior Living Arrangements House Household Members spouse Type of transporation used prior to Drives own vehicle admit Independent with ADL's Yes Is patient alert and oriented? Yes Caregiver for Another No Barriers to Discharge No Discharge Plan Home Transportation Arrangement Spouse Referrals Initiated None needed Whiteboard Updated in Patient Room with Yes name and ext. # of Returned Goods Receiving Clerk Review Status In Process Please Provide Date Initial DC 06/07/21 Assessment Was Performed Next Review Type Continued Stay Review
[2021-06-07] MEDS: METOCLOPRAMIDE 10 MG/2 ML INJ IV ×2 (15:34→21:35)
[2021-06-07] MEDS: CALCIUM CARBONATE 500 MG TAB 1000 MG PO (20:18)
[2021-06-07] MEDS: SODIUM CHLORIDE 0.9% FLUSH 10 ML IV (20:19)
--- NOTE | 2021-06-07 22:25 | PC.NURSE ---
nausea/abdominal discomfort pt has had 650cc emesis this shift. has been burping quite a lot. agreeable to ambulation and left side lying. states he feels better after he vomits. spoke with pt about getting an MD order for an NG tube to alleviate symptoms. Pt refuses.
[2021-06-08] VITALS (14 sets, daily range): BP systolic 130–157; BP diastolic 76–93; PULSE 73–84; RESP 17–18; TEMP 36.6–37.2; O2SAT 93–98
[2021-06-08] MEDS: PIPERACILLIN/TAZO 3.375 GM in SODIUM CHLORIDE 0.9% 100 ML 25 ML IV ×3 (00:14→17:28)
[2021-06-08] MEDS: CALCIUM CARBONATE 500 MG TAB 1000 MG PO (00:14)
[2021-06-08] MEDS: LACTATED RINGERS 1,000 ML 120 ML IV ×2 (00:20→08:41)
[2021-06-08 05:59] LABS: Add Manual Diff / Slide Review NO; Basophils Absolute Auto 0 /uL (0-100); Basophils Percent Auto 0.2 % (0-2); Eosinophils Absolute Auto 0 /uL (0-450); Hematocrit 42.9 % (41-53); Hemoglobin 14.5 g/dL (13.5-17.5); Lymphocytes Absolute Auto 800 /uL (1100-4500); Lymphocytes Percent Auto 4.7 % (25-40); Mean Corpuscular HGB Conc 33.9 % (30-36); Mean Corpuscular Hemoglobin 32.2 PG (26-34); Mean Corpuscular Volume 94.9 fL (80-100); Monocytes Absolute Auto 1100 /uL (0-900); Monocytes Percent Auto 6.1 % (3-14); Neutrophils Absolute Auto 15400 /uL (1500-7000); Platelet Count 200 X10^3/uL (150-400); Red Blood Cell Count 4.52 X10^6/uL (4.5-5.9); Red Cell Distribution Width 12.8 % (11.6-14.8); White Blood Cell Count 17.3 X10^3/uL (4.5-11.0)
[2021-06-08] MEDS: ENOXAPARIN 40 MG/0.4 ML SYRINGE SUBCUT (08:28)
[2021-06-08] MEDS: lisinopriL 20 MG TABLET PO (08:30)
[2021-06-08] MEDS: SODIUM CHLORIDE 0.9% FLUSH 10 ML IV ×2 (08:34→21:54)
[2021-06-08] MEDS: VERAPAMIL SR 120 MG TABLET 240 MG PO (08:36)
--- NOTE | 2021-06-08 12:54 | PM.PNPO.1 ---
Subjective Subjective Date Patient Seen: 06/08/21 Time Patient Seen: 12:54 Interval history: No further nausea or emesis and in the past 12 hours. Bowel movement x2. Abdominal pain much improved today. Exam Vital Signs (past 8 hours): - 06/08/21 08:00 06/08/21 08:30 06/08/21 08:32 Temperature 98.7 F Pulse Rate 84 84 Respiratory Rate 18 Blood Pressure 151/83 H 151/83 H Pulse Oximetry 93 95 06/08/21 10:57 Temperature Pulse Rate Respiratory Rate Blood Pressure Pulse Oximetry 93 Oxygen Delivery Method Room Air Oxygen Flow Rate 0 Narrative Exam Narrative: General adult male alert oriented no acute distress Abdomen soft minimally tender. Drain serosanguineous Objective Labs Result Diagrams: 06/08/21 05:20 06/06/21 19:00 Labs: Laboratory Results - last 24 hr 06/08/21 05:20 WBC 17.3 H RBC 4.52 Hgb 14.5 Hct 42.9 MCV 94.9 MCH 32.2 MCHC 33.9 RDW 12.8 Plt Count 200 Neut % (Auto) 89.0 H Lymph % (Auto) 4.7 L [place] % (Auto) 6.1 Eos % (Auto) 0.0 L Baso % (Auto) 0.2 Neut # (Auto) 85653 H Lymph # (Auto) 800 L [place] # (Auto) 1100 H Eos # (Auto) 0 Baso # (Auto) 0 PFSH Medical History (Updated 06/06/21 @ 22:16 by Asia Perdomo DO) Hypertension Surgical History (Updated 06/06/21 @ 21:54 by Leonidas Suarez MD) History of lumbar fusion S/P hip replacement Social History household members: spouse Smoking Status: Never smoker alcohol intake: current Assessment & Plan Post-op Postoperative Procedures: Procedures Operation Date: 06/06/21 22:00 Actual Procedure Side Surgeon p Laparoscopic Appendectomy Leonidas Suarez MD Postoperative status narrative: 60-year-old man postoperative day 2 status post laparoscopic appendectomy for acute appendicitis with diffuse peritonitis. He is improving his postoperative ileus appears to be resolved. -clear liquid diet may advance to full liquids today. -DC IV fluids -continue Zosyn -SCDs and Lovenox for VT prophylaxis+ -if tolerates regular diet and leukocytosis is down trending then may discharge home tomorrow on oral antibiotics, drain removal prior to discharge.
[2021-06-09] VITALS (17 sets, daily range): BP systolic 126–151; BP diastolic 67–94; PULSE 65–80; RESP 16–24; TEMP 36.2–36.8; O2SAT 92–96
[2021-06-09] MEDS: ACETAMINOPHEN 325 MG TABLET 650 MG PO ×4 (00:16→17:01)
[2021-06-09] MEDS: PIPERACILLIN/TAZO 3.375 GM in SODIUM CHLORIDE 0.9% 100 ML 25 ML IV ×3 (00:16→16:30)
[2021-06-09 05:36] LABS: Add Manual Diff / Slide Review NO; Basophils Absolute Auto 0 /uL (0-100); Basophils Percent Auto 0.2 % (0-2); Eosinophils Absolute Auto 0 /uL (0-450); Hematocrit 40.8 % (41-53); Hemoglobin 13.9 g/dL (13.5-17.5); Lymphocytes Absolute Auto 1500 /uL (1100-4500); Lymphocytes Percent Auto 10.7 % (25-40); Mean Corpuscular HGB Conc 34.1 % (30-36); Mean Corpuscular Hemoglobin 32.3 PG (26-34); Mean Corpuscular Volume 94.7 fL (80-100); Monocytes Absolute Auto 1100 /uL (0-900); Monocytes Percent Auto 7.9 % (3-14); Neutrophils Absolute Auto 11100 /uL (1500-7000); Neutrophils Percent Auto 81.2 % (50-75); Platelet Count 205 X10^3/uL (150-400); Red Blood Cell Count 4.31 X10^6/uL (4.5-5.9); Red Cell Distribution Width 12.8 % (11.6-14.8); White Blood Cell Count 13.7 X10^3/uL (4.5-11.0)
[2021-06-09] MEDS: ENOXAPARIN 40 MG/0.4 ML SYRINGE SUBCUT (08:36)
[2021-06-09] MEDS: lisinopriL 20 MG TABLET PO (08:36)
[2021-06-09] MEDS: SODIUM CHLORIDE 0.9% FLUSH 10 ML IV ×2 (08:38→22:15)
[2021-06-09] MEDS: VERAPAMIL SR 120 MG TABLET 240 MG PO (08:39)
--- NOTE | 2021-06-09 10:11 | PM.PNPO.1 ---
Subjective Subjective Interval history: Patient feels well. Has minimal pain. Would like to go home. On a general diet. Exam Vital Signs (past 8 hours): - 06/09/21 04:00 06/09/21 04:35 06/09/21 08:00 Temperature 97.9 F 97.2 F L Pulse Rate 74 68 Respiratory Rate 18 16 Blood Pressure 149/88 H 141/94 H Pulse Oximetry 94 94 92 06/09/21 08:36 Temperature Pulse Rate 79 Respiratory Rate Blood Pressure 150/89 H Pulse Oximetry Oxygen Delivery Method Room Air Oxygen Flow Rate 0 Narrative Exam Narrative: Lungs are clear to auscultation. No rales or rhonchi. Heart regular rate and rhythm. Abdomen is protuberant and soft. There is some bronze discoloration at the umbilicus. Abdomen is soft nontender. Drainage is serous. Objective Labs Result Diagrams: 06/09/21 05:13 06/06/21 19:00 Labs: Laboratory Results - last 24 hr 06/09/21 05:13 WBC 13.7 H RBC 4.31 L Hgb 13.9 Hct 40.8 L MCV 94.7 MCH 32.3 MCHC 34.1 RDW 12.8 Plt Count 205 Neut % (Auto) 81.2 H Lymph % (Auto) 10.7 L [place] % (Auto) 7.9 Eos % (Auto) 0.0 L Baso % (Auto) 0.2 Neut # (Auto) 65116 H Lymph # (Auto) 1500 [place] # (Auto) 1100 H Eos # (Auto) 0 Baso # (Auto) 0 PFSH Medical History (Updated 06/06/21 @ 22:16 by Asia Perdomo DO) Hypertension Surgical History (Updated 06/06/21 @ 21:54 by Leonidas Suarez MD) History of lumbar fusion S/P hip replacement Social History household members: spouse Smoking Status: Never smoker alcohol intake: current Assessment & Plan Post-op Postoperative Procedures: Procedures Operation Date: 06/06/21 22:00 Actual Procedure Side Surgeon p Laparoscopic Appendectomy Leonidas Suarez MD Postoperative status narrative: Doing well. I am a little concerned that his white blood cell count is still elevated with a preponderance of segs. Postoperative plan narrative: Will remove drain today. Repeat labs in the a.m..
--- NOTE | 2021-06-09 15:16 | CM.DPC ---
DCP Cont: Checked in with patient today. He is pleasant, alert and oriented. He resides in [place], but has a boat here in [place]. 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 Confirmed that his primary care provider is in [place], his name is Dr. Martinez. Patient is hopeful to be able to go home today. His white count was somewhat elevated, and will stay anoterh night. P: DCP to continue to follow. Plan is for home when medically stable. Jessica Gomez RN/Rn Psych
--- NOTE | 2021-06-09 15:19 | PC.NURSE ---
A&)x4. VSS, HTN. Denies pain. SBA with walker, calls appropriately. Removed DAMI drain this morning, tolerated well. Lap site dressings cdi. Good appetite. Call light within reach, bed low.
[2021-06-10] VITALS: O2SAT 95
[2021-06-10] MEDS: PIPERACILLIN/TAZO 3.375 GM in SODIUM CHLORIDE 0.9% 100 ML 25 ML IV ×2 (00:22→08:15)
[2021-06-10] MEDS: ACETAMINOPHEN 325 MG TABLET 650 MG PO ×2 (00:22→06:20)
[2021-06-10 04:00] VITALS: O2SAT 96
[2021-06-10 04:56] VITALS: BP 155/91; PULSE 71; RESP 18; TEMP 36.6; O2SAT 96
[2021-06-10 07:06] LABS: Add Manual Diff / Slide Review NO; Basophils Absolute Auto 0 /uL (0-100); Basophils Percent Auto 0.4 % (0-2); Eosinophils Absolute Auto 100 /uL (0-450); Eosinophils Percent Auto 0.8 % (2-4); Hematocrit 43.7 % (41-53); Hemoglobin 14.7 g/dL (13.5-17.5); Lymphocytes Absolute Auto 1500 /uL (1100-4500); Lymphocytes Percent Auto 12.3 % (25-40); Mean Corpuscular HGB Conc 33.7 % (30-36); Mean Corpuscular Hemoglobin 32.1 PG (26-34); Mean Corpuscular Volume 95.1 fL (80-100); Monocytes Absolute Auto 1400 /uL (0-900); Monocytes Percent Auto 11.6 % (3-14); Neutrophils Absolute Auto 9300 /uL (1500-7000); Neutrophils Percent Auto 74.9 % (50-75); Platelet Count 225 X10^3/uL (150-400); Red Blood Cell Count 4.59 X10^6/uL (4.5-5.9); Red Cell Distribution Width 12.7 % (11.6-14.8); White Blood Cell Count 12.4 X10^3/uL (4.5-11.0)
[2021-06-10 08:00] VITALS: O2SAT 97
[2021-06-10] MEDS: SODIUM CHLORIDE 0.9% FLUSH 10 ML IV (08:16)
[2021-06-10] MEDS: lisinopriL 20 MG TABLET PO (08:16)
[2021-06-10] MEDS: ENOXAPARIN 40 MG/0.4 ML SYRINGE SUBCUT (08:16)
[2021-06-10 08:20] VITALS: BP 157/108; PULSE 71; RESP 18; TEMP 36.7; O2SAT 95
[2021-06-10] MEDS: VERAPAMIL SR 120 MG TABLET 240 MG PO (08:34)
[2021-06-10 09:25] VITALS: O2SAT 95
--- NOTE | 2021-06-10 12:55 | P.DS_ITS ---
History of Present Illness History of Present Illness Date Patient Seen: 06/10/21 Time Patient Seen: 12:55 Chief complaint: pain in low abd Narrative: Ponce is a 60-year-old man seen in the emergency room in consultation for acute appendicitis. He developed acute abdominal pain yesterday which became steadily worse and primarily focused in the right lower quadrant. Associated anorexia and nausea no emesis. At admission temperature 99.5?, WBC 18 remainder of laboratory studies unremarkable. CT abdomen pelvis demonstrates a dilated appendix with free fluid in the pelvis and a foci of free air consistent with acute appendicitis unlikely rupture. Received IV pain medication and Zosyn in the emergency room. Discharge Providers Provider Date of admission: 06/06/21 21:35 Discharge Date: 06/10/21 Discharge provider: Leonidas Suarez MD Summary Hospital Course Discharge Diagnosis: Acute perforated appendicitis with generalized peritonitis Hospital Course: Patient underwent a laparoscopic appendectomy which demonstrated a necrotic perforated appendix with diffuse peritonitis. Postoperative course was notable for postoperative ileus. Ileus resolved spontaneously. He was maintained on IV Zosyn until he had resolution of leukocytosis. At discharge he is afebrile, abdomen soft incisions clean dry intact abdominal drain removed. He is tolerating a regular diet, ambulatory, afebrile. Exam Vital Signs (past 8 hours): - 06/10/21 04:56 06/10/21 08:00 06/10/21 08:20 Temperature 98 F 98.0 F Pulse Rate 71 71 Respiratory Rate 18 18 Blood Pressure 155/91 H 157/108 H Pulse Oximetry 96 97 95 06/10/21 09:25 Temperature Pulse Rate Respiratory Rate Blood Pressure Pulse Oximetry 95 Oxygen Delivery Method Room Air Oxygen Flow Rate 0 Narrative Exam Narrative: Constitutional-he is oriented to person, place and time. No apparent distress Cardiovascular- regular rate, no peripheral edema Pulmonary-unlabored respiratory effort, no audible wheezing Abdominal-soft, appropriately tender to palpation. Incisions clean dry intact with Steri-Strips. Tegaderm dressing over drain site no leakage. Musculoskeletal-no cyanosis or clubbing Neurological-nonfocal, normal strength throughout, normal gait. Skin-warm and dry Objective Labs Result Diagrams: 06/10/21 06:40 06/06/21 19:00 Labs: Laboratory Results - last 24 hr 06/10/21 06:40 WBC 12.4 H RBC 4.59 Hgb 14.7 Hct 43.7 MCV 95.1 MCH 32.1 MCHC 33.7 RDW 12.7 Plt Count 225 Neut % (Auto) 74.9 Lymph % (Auto) 12.3 L [place] % (Auto) 11.6 Eos % (Auto) 0.8 L Baso % (Auto) 0.4 Neut # (Auto) 9300 H Lymph # (Auto) 1500 [place] # (Auto) 1400 H Eos # (Auto) 100 Baso # (Auto) 0 PFSH Medical History (Updated 06/06/21 @ 22:16 by Asia Perdomo DO) Hypertension Surgical History (Updated 06/06/21 @ 21:54 by Leonidas Suarez MD) History of lumbar fusion S/P hip replacement Social History household members: spouse Smoking Status: Never smoker alcohol intake: current Discharge Plan Discharge Plan Patient Disposition: Home Provider Discharge Comment: -Okay to shower -Do not submerge wounds in water until seen in follow-up. -No lifting >20 lbs x 4 weeks. -Walking only for exercise for 4 weeks. -No driving while taking narcotics. Nursing Discharge Comment: Follow up with your health care provider about your blood pressure. Discharge orders & Medications Prescriptions: New amoxicillin-pot clavulanate [Augmentin] 875-125 mg tablet 1 tab PO BID Qty: 14 RF: 0 oxycodone 5 mg tablet See Rx Instructions .ROUTE .COMPLEX PRN (Reason: pain) Qty: 30 RF: 0 Continued verapamil 240 mg tablet extended release 240 mg PO DAILY RF: 0 quinapril 20 mg tablet 20 mg PO DAILY RF: 0 colchicine 0.6 mg tablet 0.6 mg PO PRN PRN (Reason: Gout) RF: 0 Follow up/Referrals: Leonidas Suarez MD [Physician] - 2 Weeks (1-3 weeks) Diet/Activity/Treatments Diet: Regular Skin/Wound/Dressing Care Report to your healthcare provider any signs of infection, such as:: chills, fever, increased pain, unusual drainage and unusual redness Visit Report/Discharge Packet Instructions: DI for an Appendectomy, DI for Laparoscopy, DI for Taking Pain Medication, [facility]: Wound Care
--- NOTE | 2021-06-10 13:19 | PC.NURSE ---
Addendum entered by Obdulia Vickers R.N. 06/10/21 13:35: Pt had elevated bp this am, 157/108, rechecked and bp 196/118. He was very diaphoretic, cbg checked which was 128. BP meds given early. bp came down to 184/107 and after another 60 mins bp down to 153/105. Pt had eaten bkft and diaphoresis had stopped. He reports this has happened to him in the past. At 1100 bp down to 148/95. Dr. Suarez called and notified of elevated bp, no new orders but when he comes in he will eval pt. Dr Suarez was comfortable sending pt home and he is to follow up with his primary care provider about his bp. Pt is aware. Original Note: Discharge: Pt feels ready to d/c home. He understands he needs to follow up with his pcp about his bp elevations. Seen by Dr. Suarez and given d/c instructions. He was given his scripts. Pain minimal and no use of narcotics. He had wound care instructions by Dr. Suarez. He lives in [place] and he was given contact information for doctor for this weekend. Reviewed discharge packet, questions answered. Pt has been able to tolerate diet w/out problems, has been voiding w/out diff. Pt d/c to home via auto w/.
== END 2021-06-10 13:00 | disposition home or self-care (01) | DRG 339 ==
LOC: ED 21:33 → AC 21:38
PROVIDERS: Specialist; Admitting Provider Surgery; Emergency Provider Emergency Medicine; Visit Provider Surgery
PROC: 0DTJ4ZZ Resection of Appendix, Percutaneous Endoscopic Approach (ICD-10-PCS; CPT 44970; principal; 2021-06-06 22:00)
DX: K35.32 Acute appendicitis with perforation, localized peritonitis, and gangrene, without abscess (principal); I96 Gangrene, not elsewhere classified; I10 Essential (primary) hypertension; E66.9 Obesity, unspecified; Z68.39 Body mass index [BMI] 39.0-39.9, adult; Z20.822 Contact with and (suspected) exposure to COVID-19
CPT/HCPCS: 36415; 44970; 74177; 80053; 81001; 82550; 82553; 83605; 83690; 84145; 84484; 85025; 86850; 86900; 86901; 87040; 87635; 93005; 94760; 96361; 96365; 96375; 96376; 99222; 99284; C9803; J0330; J1100; J1170; J1650; J2250; J2270; J2405; J2543; J2704; J2765

== ENCOUNTER → 2021-08-16 08:10 | Outpatient (CLI) | payer OTHER, SELFPAY ==
[2021-06-07 00:58] VITALS: BMI 39.4
[2021-08-16 09:28] LABS: Add Manual Diff / Slide Review NO; Basophils Absolute Auto 100 /uL (0-100); Basophils Percent Auto 1.2 % (0-2); Eosinophils Absolute Auto 200 /uL (0-450); Eosinophils Percent Auto 2.8 % (2-4); Hematocrit 48.6 % (41-53); Hemoglobin 16.5 g/dL (13.5-17.5); Lymphocytes Absolute Auto 2100 /uL (1100-4500); Lymphocytes Percent Auto 33.4 % (25-40); Mean Corpuscular Hemoglobin 31.5 PG (26-34); Mean Corpuscular Volume 92.8 fL (80-100); Monocytes Absolute Auto 700 /uL (0-900); Monocytes Percent Auto 11.5 % (3-14); Neutrophils Absolute Auto 3200 /uL (1500-7000); Neutrophils Percent Auto 51.1 % (50-75); Platelet Count 261 X10^3/uL (150-400); Red Blood Cell Count 5.23 X10^6/uL (4.5-5.9); Red Cell Distribution Width 13.5 % (11.6-14.8); White Blood Cell Count 6.3 X10^3/uL (4.5-11.0)
[2021-08-16 09:47] LABS: Alanine Aminotransferase 45 IU/L (<50); Albumin 4.6 g/dL (3.5-5.0); Albumin Globulin Ratio 1.4 (1.0-2.8); Alkaline Phosphatase 86 U/L (38-126); Aspartate Aminotransferase 32 IU/L (17-59); BUN Creatinine Ratio 13.8 (6-22); Bilirubin Total 0.5 mg/dL (0.2-1.3); Blood Urea Nitrogen 13 mg/dL (9-20); Calcium 9.5 mg/dL (8.4-10.2); Carbon Dioxide 28 mmol/L (22-32); Chloride 103 mmol/L (98-107); Cholesterol 194 mg/dL (140-199); Estimated Glomerular Filt Rate > 60.0 mL/min (>60); Globulin 3.2 g/dL (1.7-4.1); Glucose 103 mg/dL (80-110); HDL Cholesterol 42 mg/dL (40-60); HEMOLYSIS < 15 (0-50); LDL Cholesterol Calculated 127 mg/dL (<100); Potassium 4.1 mmol/L (3.4-5.1); Sodium 140 mmol/L (137-145); Total Protein 7.8 g/dL (6.3-8.2); Triglycerides 124 mg/dL (35-150)
[2021-08-16 10:00] LABS: Creatinine Urine Random 93.9 mg/dL
[2021-08-16 10:04] LABS: Microalbumi Creatinin Ratio Ur 9.5 ug/mg CR (<30); Microalbumin Urine Random 0.9 mg/dL (0-1.6)
[2021-08-16 10:16] LABS: TSH w/ Reflex to FT4 1.98 uIU/mL (0.47-4.68)
[2021-08-16 10:17] LABS: Prostate Specific Antigen Scrn 2.56 ng/mL (0.1-4.0)
[2021-08-22 08:13] LABS: Percent Free Testosterone 2.31 % (1.50-4.20); Testosterone Free 14.09 ng/dL (5.00-21.00)
== END ==
PROVIDERS: PCP Family Medicine; Referring Provider Family Medicine; Visit Provider Family Medicine
DX: M10.9 Gout, unspecified (principal); J45.909 Unspecified asthma, uncomplicated; R01.1 Cardiac murmur, unspecified; I10 Essential (primary) hypertension; R73.9 Hyperglycemia, unspecified; Z12.5 Encounter for screening for malignant neoplasm of prostate; R68.82 Decreased libido
CPT/HCPCS: 36415; 80053; 80061; 82043; 82570; 84402; 84403; 84443; 85025; G0103

== ENCOUNTER → 2021-10-27 10:24 | Outpatient (CLI) | payer OTHER, SELFPAY ==
[2021-06-07 00:58] VITALS: BMI 39.4
--- NOTE | 2021-10-27 10:25 | DI.RAD.S_ITS ---
PROCEDURE: XR SHOULDER RT MIN 2V INDICATIONS: right shoulder pain/ limited ROM TECHNIQUE: 3 views of the shoulder were acquired. COMPARISON: None. FINDINGS: Bones: No fractures or dislocations. No suspicious bony lesions. Visualized ribs appear intact. Mild joint space narrowing and periarticular osteophyte formation at the acromioclavicular and glenohumeral joints. Soft tissues: No suspicious soft tissue calcifications. IMPRESSION: Osteoarthritis. No acute fracture. No osseous lesion. If symptoms and/or clinical suspicion for pathology persist, further assessment with repeat, or advanced imaging (e.g., CT, MRI, or bone scan) may be helpful for further assessment. Dictated by: Hemanth Calzada M.D. on 10/27/2021 at 13:45 Approved by: Hemanth Calzada M.D. on 10/27/2021 at 13:45
== END ==
PROVIDERS: PCP Family Medicine; Referring Provider Family Medicine; Visit Provider Family Medicine
DX: M19.011 Primary osteoarthritis, right shoulder (principal); M25.511 Pain in right shoulder; M25.611 Stiffness of right shoulder, not elsewhere classified
CPT/HCPCS: 73030

== ENCOUNTER → 2022-07-25 09:07 | Outpatient (CLI) | payer OTHER, SELFPAY ==
[2021-06-07 00:58] VITALS: BMI 39.4
[2022-07-25 10:14] LABS: COVID19 -Nasal RAPID Negative (Negative)
== END ==
PROVIDERS: PCP Family Medicine; Visit Provider Surgery
DX: Z20.822 Contact with and (suspected) exposure to COVID-19 (principal); Z01.812 Encounter for preprocedural laboratory examination
CPT/HCPCS: 87635; C9803

== ENCOUNTER 2022-07-26 08:15 | Day surgery (SDC) | payer OTHER, SELFPAY ==
[2021-06-07 00:58] VITALS: BMI 39.4
--- NOTE | 2022-07-26 | PATH_ITS ---
[facility] Accession Number: [id number] . 01 Material submitted: . colon - ASCENDING COLON POLYP . 01 Diagnosis: Ascending Colon, Polyp, Biopsy: Tubular adenoma. MRV 07/31/2022 1244 Local . 01 Electronically signed: . Joselyn Moreno MD, Pathologist NPI- [id number] . 01 Gross description: . ASCENDING COLON POLYP: Received in formalin is 1 fragment(s) of veloz, soft tissue measuring 0.3 x 0.3 x 0.2 cm submitted entirely in 1 cassette(s) /WENDY 07/30/2022 1844 Local . 01 Pathologist provided ICD-10: D12.2 . 01 CPT . 694823 Specimen Comment: A courtesy copy of this report has been sent to [phone] Performed at: 01 [facility] [address] [place] [address] [id number] MD Nicola Colunga MD Phone: [phone]
[2022-07-26 08:34] VITALS: BMI 39.0
[2022-07-26 08:39] VITALS: BP 154/92; PULSE 92; RESP 16; TEMP 36.2; O2SAT 99
[2022-07-26] MEDS: LACTATED RINGERS 1,000 ML 42 ML IV (08:53)
--- NOTE | 2022-07-26 09:08 | PM.HP.1 ---
History of Present Illness History of Present Illness Date Patient Seen: 07/26/22 Time Patient Seen: 09:09 Chief complaint: Colonoscopy Narrative: Ponce is a 61-year-old man with a family history of colon cancer in both parents and history of polyps on his last colonoscopy 3 years ago. He also had a laparoscopic appendectomy for a perforated appendicitis 2020. Patient History Medical History (Updated 07/26/22 @ 09:09 by Ricardo Moctezuma MD) Asthma Chicken pox Gout Heart murmur Hypertension Surgical History (Updated 08/09/21 @ 20:07 by Khushboo Clifford) Acute appendicitis (~05/2021) Anesthesia History of lumbar fusion S/P hip replacement Family & Social History Family History (Updated 08/09/21 @ 20:09 by Khushboo Clifford) Father Colon cancer Mother Colon cancer Hypertension Social History: household members spouse Tobacco & Substance use: Smoking Status Never smoker alcohol intake current alcohol intake frequency 0-2 drinks per day Substance Use Type marijuana Meds Home Medications and Allergies Home Medications Medication Instructions Recorded Confirmed Type verapamil 240 mg tablet,extended 240 mg PO DAILY #90 tabs 09/08/21 07/26/22 Rx release quinapril 40 mg tablet 40 mg PO BID #180 tabs 10/30/21 07/26/22 Rx sodium sul 1.479 gram-potas ch See Rx Instructions PO PER PKG DIR 07/05/22 Rx 0.188 gram-magnes sul 0.225 gram #24 tabs tablet (Sutab) Vitamin D2 07/26/22 History Allergies Allergy/AdvReac Type Severity Reaction Status Date / Time aspirin Allergy Verified 07/26/22 08:25 bee venom protein (honey bee) Allergy Verified 06/28/21 13:05 clams Allergy Verified 06/28/21 13:05 NSAIDS (Non-Steroidal Allergy Verified 06/28/21 13:05 Anti-Inflamma Exam Vital Signs (past 8 hours): - 07/26/22 08:39 Temperature 97.1 F L Pulse Rate 92 H Respiratory Rate 16 Blood Pressure 154/92 H Pulse Oximetry 99 Oxygen Delivery Method Room Air Oxygen Delivery Method Room Air Const General: healthy appearing and No acute distress Assessment & Plan Assessment and plan (1) Family history of colon cancer: Status: Acute Plan 61-year-old man with personal history of colon polyps and a family history of colon cancer here for colonoscopy. We reviewed the risks and benefits and he would like to proceed. Time Spent With Patient Critical Care time: I spent a total of [] minutes of critical care time on this patient's care today; this time is exclusive of procedural time.
[2022-07-26] MEDS: MIDAZOLAM 5 MG/5 ML VIAL 12 MG IV (10:01)
[2022-07-26] MEDS: fentaNYL 100 MCG/2 ML INJ 200 MCG IV (10:02)
--- NOTE | 2022-07-26 10:07 | P.OP.COLON_ITS ---
Operative Date/Time/Diagnoses Date of procedure: 07/26/22 Time of procedure: 10:07 Pre-op diagnosis: Personal history of colon polyps and family history of colon cancer Post-op diagnosis: same Procedure & Clinicians Study performed: Colonoscopy Same procedure as scheduled: Yes Surgeon: Ricardo Moctezuma Procedure Notes Procedure in detail: Surgeon: Ricardo Moctezuma MD Procedure: The patient was brought to the endoscopy suite, placed in left lateral decubitus position. The patient was connected to monitoring devices. A time-out was performed. Sedation was administered. Once the patient was adequately sedated, a digital rectal exam was performed and was normal. The scope was then inserted and advanced to the ascending colon. Could just see the ileocecal valve but the scope could not be advanced all the way into the cecum. The appendiceal orifice was never visualized. We repositioned the patient in supine position, we used the scope stiffener, we applied abdominal pressure and various quadrants abdomen and we lifted the legs and pelvis without success. The scope was then slowly withdrawn over greater than 6 minutes. There was a small polyp in the ascending colon removed with cold snare. No other abnormalities were seen. The scope was retroflexed in the rectum. No abnor malities were seen. The scope was straightened and removed. The patient was awakened and brought to recovery. Versed: 12 mg Fentanyl: 200 mcg EBL: 5 mL Findings: Incomplete colonoscopy, ascending colon polyp Scope withdrawal time: 10 Sedation minutes: 49 Post-procedure Plan for aftercare: The patient will be advised to undergo a barium Disposition: PACU
[2022-07-26 10:08] VITALS: BP 124/78; PULSE 64; RESP 16; TEMP 36.6; O2SAT 95
[2022-07-26 10:13] VITALS: BP 136/80; PULSE 71; RESP 18; O2SAT 96
[2022-07-26 10:18] VITALS: BP 134/76; PULSE 57; RESP 16; TEMP 37.1; O2SAT 97
[2022-07-26 10:26] VITALS: BP 130/81; PULSE 66; RESP 16; TEMP 36.7; O2SAT 96
== END 2022-07-26 10:45 | disposition home or self-care (01) ==
PROVIDERS: PCP Family Medicine; Referring Provider Surgery; Visit Provider Surgery
PROC: 0DJD8ZZ Inspection of Lower Intestinal Tract, Via Natural or Artificial Opening Endoscopic (ICD-10-PCS; CPT 45378; principal; 2022-07-26 09:15)
DX: Z12.11 Encounter for screening for malignant neoplasm of colon (principal); Z86.010 Personal history of colon polyps; Z80.0 Family history of malignant neoplasm of digestive organs; D12.2 Benign neoplasm of ascending colon
CPT/HCPCS: 45385; 99152; 99153; J2250; J3010

== ENCOUNTER → 2022-08-13 08:16 | Outpatient (CLI) | payer OTHER, SELFPAY ==
[2021-06-07 00:58] VITALS: BMI 39.4
--- NOTE | 2022-08-13 08:16 | DI.RAD.S_ITS ---
PROCEDURE: FL BARIUM ENEMA W AIR CONTRAST INDICATIONS: incomplete colonoscopy COMPARISON: None. FINDINGS: KUB: Pre-procedural specialist physician film demonstrates a normal bowel gas pattern. No suspicious abdominal calcifications. Visualized solid organ contours are normal in size. No suspicious bony lesions. Surgical hardware in left hip and lower lumbar spine at L4-5 level are seen. Colon: There is adequate air-contrast opacification from the rectum to the distal ascending colon with air distending rest of the ascending colon to the level of cecum. No strictures, ulcers, polyps, or masses are seen. Haustral folds are normal in thickness throughout. A few diverticuli are noted in redundant sigmoid colon. IMPRESSION: 1. A few diverticuli seen in redundant sigmoid colon. No gross intraluminal filling defect, large polyps or ulceration. No high-grade stricture is seen in the colon. Limited contrast filling of the cecum. Air distended portion of ascending colon and cecum show no gross abnormality. Dictated by: Cesar Dickey M.D. on 08/13/2022 at 10:28 Approved by: Cesar Dickey M.D. on 08/13/2022 at 10:30
== END ==
PROVIDERS: PCP Family Medicine; Referring Provider Surgery; Visit Provider Surgery
DX: Z12.11 Encounter for screening for malignant neoplasm of colon (principal); K57.30 Diverticulosis of large intestine without perforation or abscess without bleeding; Z80.0 Family history of malignant neoplasm of digestive organs
CPT/HCPCS: 74270

== ENCOUNTER → 2023-05-28 08:06 | Outpatient (CLI) | payer OTHER, SELFPAY ==
[2021-06-07 00:58] VITALS: BMI 39.4
[2023-05-28 09:56] LABS: Add Manual Diff / Slide Review NO; Basophils Absolute Auto 100 /uL (0-100); Basophils Percent Auto 1.1 % (0-2); Eosinophils Absolute Auto 200 /uL (0-450); Hematocrit 44.7 % (41-53); Hemoglobin 15.7 g/dL (13.5-17.5); Lymphocytes Absolute Auto 2100 /uL (1100-4500); Lymphocytes Percent Auto 32.1 % (25-40); Mean Corpuscular HGB Conc 35.1 % (30-36); Mean Corpuscular Hemoglobin 32.8 PG (26-34); Mean Corpuscular Volume 93.5 fL (80-100); Monocytes Absolute Auto 700 /uL (0-900); Monocytes Percent Auto 11.6 % (3-14); Neutrophils Absolute Auto 3400 /uL (1500-7000); Neutrophils Percent Auto 52.2 % (50-75); Platelet Count 235 X10^3/uL (150-400); Red Blood Cell Count 4.78 X10^6/uL (4.5-5.9); Red Cell Distribution Width 12.5 % (11.6-14.8); White Blood Cell Count 6.5 X10^3/uL (4.5-11.0)
[2023-05-28 10:18] LABS: Alanine Aminotransferase 39 IU/L (<50); Albumin 4.2 g/dL (3.5-5.0); Albumin Globulin Ratio 1.4 (1.0-2.8); Alkaline Phosphatase 92 U/L (38-126); Aspartate Aminotransferase 27 IU/L (17-59); BUN Creatinine Ratio 18.6 (6-22); Bilirubin Total 0.5 mg/dL (0.2-1.3); Blood Urea Nitrogen 16 mg/dL (9-20); Carbon Dioxide 22 mmol/L (22-32); Chloride 106 mmol/L (98-107); Cholesterol 176 mg/dL (140-199); Estimated Glomerular Filt Rate > 60 mL/min (>60); Globulin 3.1 g/dL (1.7-4.1); Glucose 100 mg/dL (80-110); HDL Cholesterol 41 mg/dL (40-60); HEMOLYSIS < 15 (0-50); LDL Cholesterol Calculated 117 mg/dL (<100); Potassium 4.3 mmol/L (3.4-5.1); Sodium 138 mmol/L (137-145); Total Protein 7.3 g/dL (6.3-8.2); Triglycerides 91 mg/dL (35-150)
[2023-05-28 10:22] LABS: Creatinine Urine Random 98.5 mg/dL
[2023-05-28 10:26] LABS: Microalbumin Urine Random < 0.6 mg/dL (0-1.6)
[2023-05-28 10:40] LABS: TSH w/ Reflex to FT4 1.52 uIU/mL (0.47-4.68)
[2023-05-28 10:45] LABS: Prostate Specific Antigen Scrn 3.01 ng/mL (0.1-4.0)
== END ==
PROVIDERS: PCP Family Medicine; Referring Provider Family Medicine; Visit Provider Family Medicine
DX: H93.13 Tinnitus, bilateral (principal); I10 Essential (primary) hypertension; J45.909 Unspecified asthma, uncomplicated; Z12.5 Encounter for screening for malignant neoplasm of prostate
CPT/HCPCS: 36415; 80053; 80061; 82043; 82570; 84443; 85025; G0103

== ENCOUNTER → 2024-08-12 11:17 | Outpatient (CLI) | payer MEDICARE, OTHER, SELFPAY ==
[2021-06-07 00:58] VITALS: BMI 39.4
[2024-08-12 12:22] LABS: Add Manual Diff / Slide Review NO; Basophils Absolute Auto 200 /uL (0-100); Basophils Percent Auto 2.9 % (0-2); Eosinophils Absolute Auto 200 /uL (0-450); Eosinophils Percent Auto 2.9 % (2-4); Hematocrit 46.9 % (41-53); Hemoglobin 16.2 g/dL (13.5-17.5); Lymphocytes Absolute Auto 2900 /uL (1100-4500); Lymphocytes Percent Auto 37.1 % (25-40); Mean Corpuscular HGB Conc 34.6 % (30-36); Mean Corpuscular Hemoglobin 32.8 PG (26-34); Mean Corpuscular Volume 94.8 fL (80-100); Monocytes Absolute Auto 800 /uL (0-900); Monocytes Percent Auto 10.5 % (3-14); Neutrophils Absolute Auto 3700 /uL (1500-7000); Neutrophils Percent Auto 46.6 % (50-75); Platelet Count 290 X10^3/uL (150-400); Red Blood Cell Count 4.95 X10^6/uL (4.5-5.9); Red Cell Distribution Width 13.2 % (11.6-14.8); White Blood Cell Count 7.9 X10^3/uL (4.5-11.0)
[2024-08-12 12:46] LABS: Alanine Aminotransferase 33 IU/L (<50); Albumin 4.5 g/dL (3.5-5.0); Albumin Globulin Ratio 1.5 (1.0-2.8); Alkaline Phosphatase 95 U/L (38-126); Aspartate Aminotransferase 34 IU/L (17-59); BUN Creatinine Ratio 21.9 (6-22); Bilirubin Total 0.7 mg/dL (0.2-1.3); Blood Urea Nitrogen 21 mg/dL (9-20); Calcium 9.4 mg/dL (8.4-10.2); Carbon Dioxide 24 mmol/L (22-32); Chloride 107 mmol/L (98-107); Cholesterol 182 mg/dL (140-199); Estimated Glomerular Filt Rate > 60 mL/min (>60); Globulin 3.1 g/dL (1.7-4.1); Glucose 95 mg/dL (80-110); HDL Cholesterol 47 mg/dL (40-60); HEMOLYSIS 109 (0-50); LDL Cholesterol Calculated 113 mg/dL (<100); Potassium 5.1 mmol/L (3.4-5.1); Sodium 138 mmol/L (137-145); Total Protein 7.6 g/dL (6.3-8.2); Triglycerides 110 mg/dL (35-150)
[2024-08-12 13:15] LABS: Prostate Specific Antigen Scrn 2.56 ng/mL (0.1-4.0); TSH w/ Reflex to FT4 1.34 uIU/mL (0.47-4.68)
[2024-08-12 15:38] LABS: Creatinine Urine Random 113.74 mg/dL
[2024-08-12 15:46] LABS: Microalbumin Urine Random 0.9 mg/dL (0-1.6)
[2024-08-12 19:32] LABS: Hep C Virus Ab w/Reflex Quant NEGATIVE s/c (NEGATIVE)
[2024-08-13 03:36] LABS: Apolipoprotein B 99 mg/dL (<90)
== END ==
LOC: LAB 11:20
PROVIDERS: PCP Family Medicine; Referring Provider Family Medicine; Visit Provider Family Medicine
DX: I10 Essential (primary) hypertension (principal); Z12.5 Encounter for screening for malignant neoplasm of prostate; R73.9 Hyperglycemia, unspecified; R01.1 Cardiac murmur, unspecified; R68.82 Decreased libido; B35.1 Tinea unguium
CPT/HCPCS: 36415; 80053; 80061; 82043; 82172; 82570; 84443; 85025; 86803; G0103